=== PATIENT | female | born 1965 ===

== ENCOUNTER 2017-12-01 08:17 | Outpatient (CLI) | payer BC ==
--- NOTE | 2017-12-01 23:58 | XRay Report ---
FINAL REPORT PROCEDURE: XR KNEE BILAT 4+V TECHNIQUE: Bilateral knee radiographs, standing AP view. HISTORY: BILATERAL KNEE PAIN COMPARISON: No prior studies are available for comparison. FINDINGS: Fracture (s) and/or Dislocation(s): None . Joint space(s): Normal. Soft tissues: Normal. Bone mineralization: Normal. Foreign bodies: None. IMPRESSION: Normal Examination.
== END 2017-12-01 08:18 | disposition home or self-care (01) ==
LOC: SPVIMAG 08:17
PROVIDERS: ATTEND Orthopaedic Surgery Sports Medicine
DX: M25.561 Pain in right knee (principal); M25.562 Pain in left knee